=== PATIENT | male | born 1975 | race Caucasian/White ===

== ENCOUNTER 2021-08-09 14:34 | Emergency (ER) | payer OTHER ==
[~2021-08-09] VITALS: Ht 182.9 cm; Wt 109.1 kg
[2021-08-09 15:33] VITALS: TEMP 97.9
[2021-08-09] MEDS ORDERED: MEDROL 4MG DOSPA4 MG PO (15:57)
[2021-08-09 16:10] VITALS: BP 125/90; PULSE 80
[2021-08-09] MEDS ORDERED: FLEXERIL 1010 MG/TAB PO ×2 (16:20)
== END 2021-08-09 16:26 | disposition home or self-care (01) ==
LOC: COL.ER 14:34
DX: M54.16 Radiculopathy, lumbar region (principal); I10 Essential (primary) hypertension
CPT/HCPCS: J1100; J1885

== ENCOUNTER → 2021-12-14 | Outpatient (CLI) | payer OTHER ==
[~2021-12-14] MED LIST: FLEXERIL 1010 MG/TAB PO; MEDROL 4MG DOSPA4 MG PO
== END ==
LOC: MHCPAIN 15:29
DX: M47.896 Other spondylosis, lumbar region (principal); M54.16 Radiculopathy, lumbar region; M53.3 Sacrococcygeal disorders, not elsewhere classified
CPT/HCPCS: G0463

== ENCOUNTER 2022-04-11 19:17 | Emergency (ER) | payer OTHER ==
[~2022-04-11] VITALS: Ht 182.9 cm; Wt 113.6 kg
[2022-04-11 19:24] VITALS: BP 138/78; PULSE 84; TEMP 98.3
== END 2022-04-11 19:55 | disposition home or self-care (01) ==
LOC: COL.ER 19:17
DX: U07.1 COVID-19 (principal); H92.01 Otalgia, right ear

== ENCOUNTER 2022-09-08 17:30 | Observation (INO) | payer OTHER ==
[~2022-09-08] VITALS: Ht 182.9 cm; Wt 114.5 kg
[~2022-09-08 17:30] MED LIST changes: +CLARITIN 1010 MG/TAB PO; +INDERAL LA 60MG60 MG PO; +LEXAPRO20 MG PO; +SINGULAIR 110 MG/TAB PO; +STRATTERA 25MG25 MG PO
[2022-09-08 18:17] LABS: BASO % 0.3 % (0.0-2.0); EOS % 0.2 % (0.0-4.0); GRAN # 9.7 K/mm3 (1.4-6.5); GRAN % 82.4 % (42.2-75.2); HEMATOCRIT 47.6 % (42.0-52.0); HEMOGLOBIN 16.4 g/dl (13.5-18.0); LYMPH # 1.6 K/mm3 (1.2-3.4); LYMPH % 13.5 % (20.0-51.0); MEAN CELL VOLUME 85 fl (80.0-100.0); MEAN CORPUSCULAR HEMOGLOBIN 29 pg (27-31); MEAN CORPUSCULAR HGB CONC 35 g/dl (33.0-37.0); MONO # 0.4 K/mm3 (0.1-0.6); MONO % 3.3 % (1.7-9.3); PLATELET COUNT 275 K/mm3 (130-400); REDCELL DISTRIBUTION WIDTH-CV 12.5 % (11.5-14.5)
[2022-09-08 18:21] LABS: PROTHROMBIN TIME 11.6 SECONDS (9.7-12.8)
[2022-09-08 18:29] LABS: ALANINE AMINOTRANSFERASE 45 U/L (0-55); ALBUMIN 4.4 gm/dL (3.5-5.0); ALKALINE PHOSPHATASE 62 U/L (40-150); ANION GAP 12 mmol/L (7-16); AST,SGOT 30 U/L (5-34); BILIRUBIN,TOTAL 0.6 mg/dL (0.2-1.2); BLOOD UREA NITROGEN 15 mg/dL (9-21); CALCIUM 9.8 mg/dL (8.4-10.2); CARBON DIOXIDE 22 mmol/L (22-29); CHLORIDE 104 mmol/L (98-107); GLUCOSE 136 mg/dL (70-99); SODIUM 138 mmol/L (136-145); TOTAL PROTEIN 8.1 gm/dL (6.2-8.1)
[2022-09-08 18:48] LABS: TROPONIN-I < 0.010 ng/mL (0.00-0.033)
[2022-09-08] MEDS ORDERED: ZOFRAN ODT4 MG PO (20:44)
[2022-09-08] MEDS ORDERED: PATANOL OPHTHALM5 ML OU (22:54)
--- NOTE | 2022-09-09 | NUR ---
PT ADMITTED TO [facility] PER BED. A&OX4. ONLY DIZZY WHEN TURNS HEAD. REVIEWED PLAN OF CARE. SEE NEUROCHECKS Q2HR ORDERED. CALL LIGHT INREACH. BED ALRM SET.
[2022-09-09 00:24] VITALS: BP 128/72; PULSE 73; TEMP 97.6
--- NOTE | 2022-09-09 01:05 | NUR ---
STARTED O2 AT 2L NC FOR SHRUTI. NS AT 150CC/HR TO RFA. SEE MAR FOR VALIUM 5MG IV GIVEN ORDERED. PT DENIES DIZIINESS OR NAUSEA AT THIS TIME. CALL LIGHT IN REACH. BED ALARM SET.
--- NOTE | 2022-09-09 02:30 | NUR ---
PT DENIES DIZZINESS OR NAUSEA AT THIS TIME.
[2022-09-09 03:11] VITALS: BP 108/70; PULSE 70; TEMP 97.8
--- NOTE | 2022-09-09 06:17 | NUR ---
PT REPORTED ASSISTED TO BR BY SPACE AND STORAGE CLERK. TOLERATED WELL. VOIDED. BACK TO BED. ALL NEUROCHECKS WNL. NO COMPLAINTSMTHE IS AM.
[2022-09-09 06:33] LABS: BASO % 0.1 % (0.0-2.0); EOS % 0.1 % (0.0-4.0); GRAN # 6.6 K/mm3 (1.4-6.5); GRAN % 87.9 % (42.2-75.2); HEMATOCRIT 46.5 % (42.0-52.0); HEMOGLOBIN 15.4 g/dl (13.5-18.0); LYMPH # 0.8 K/mm3 (1.2-3.4); LYMPH % 11.1 % (20.0-51.0); MEAN CELL VOLUME 88 fl (80.0-100.0); MEAN CORPUSCULAR HEMOGLOBIN 29 pg (27-31); MEAN CORPUSCULAR HGB CONC 33 g/dl (33.0-37.0); MEAN PLATELET VOLUME 9.8 fl (7.4-10.4); MONO % 0.5 % (1.7-9.3); PLATELET COUNT 243 K/mm3 (130-400); RED BLOOD COUNT 5.27 M/mm3 (4.20-5.60); REDCELL DISTRIBUTION WIDTH-CV 12.8 % (11.5-14.5)
[2022-09-09 06:52] LABS: CALCIUM 9.3 mg/dL (8.4-10.2); CHOLESTEROL RISK RATIO 5.5; CREATININE, serum 0.87 mg/dL (0.72-1.25)
--- NOTE | 2022-09-09 07:00 | NUR ---
Upon entering room pt is awake lying in bed A&O x4. IV in right forearm @ 150ml/hr and O2 on @ 2L. No c/o of pain. States he only feels nauseous when turning head to the left or right. Pt in lowered bed with call light in reach.
[2022-09-09 07:12] VITALS: BP 110/65; PULSE 86; TEMP 98
--- NOTE | 2022-09-09 08:00 | NUR ---
Patient is resting in bed, alert and oriented x 4, VSS, states some dizziness but not as before. Assessment completed, Telemetry in palce, sinus tachy, Getting NS per orders. Awaiting for test. No other need at this time. Call light within reach.
--- NOTE | 2022-09-09 09:45 | NUR ---
Pt up and amublated to bathroom with supervision only. No c/o weakeness or n/v when ambulating.
[2022-09-09 11:02] VITALS: BP 120/75; PULSE 91; TEMP 97.7
--- NOTE | 2022-09-09 11:31 | NUR ---
Initial visit: Pt was resting and content. Pt joked around and seems in good spirits. Pt has no needs right now. Circulation Clerk will follow up as needed.
--- NOTE | 2022-09-09 11:46 | NUR ---
SW met with the patient to discuss discharge plan. The patient lives alone in [place]. He reports independence with ADLs and does not have any DME. He provides that he works at [employer]. The patient's PCP is Dr. Sutton and he receives his medications from the [facility]. The patient does not have a DPOA-HC and he was not interested in completing one at this time. He states that he is not and does not have any children. He states that his mother is still alive, but he wants his sister, Gill Salinas (ph#[phone]), as his person to notify. The patient plans to return home upon discharge. No additional needs at this time. *Discharge plan: home*
[2022-09-09] MEDS ORDERED: ANTIVERT 25MG25 MG PO (15:16)
[2022-09-09 16:00] VITALS: BP 114/72; PULSE 82; TEMP 97.9
--- NOTE | 2022-09-09 17:51 | NUR ---
Patient was provided with discharge information, all questions answered. IV and telemetry discontinued. Patient will be crab picker by a friend.
== END 2022-09-09 17:53 | disposition home or self-care (01) ==
LOC: COL.ER 17:30 → MEDICAL 23:18
PROVIDERS: Emergency Medicine; Nurse Practitioner Family; ADMIT Internal Medicine
DX: R42 Dizziness and giddiness (principal); R11.2 Nausea with vomiting, unspecified; Q28.1 Other malformations of precerebral vessels; R00.0 Tachycardia, unspecified; F43.10 Post-traumatic stress disorder, unspecified; Z79.899 Other long term (current) drug therapy
CPT/HCPCS: G0378; J1100; J2405; J3360; J7030

== ENCOUNTER 2024-02-12 14:16 | Emergency (ER) | payer OTHER ==
[~2024-02-12] VITALS: Ht 182.9 cm; Wt 114.5 kg
[~2024-02-12 14:16] MED LIST changes: +ANTIVERT 25MG25 MG PO; +PATANOL OPHTHALM5 ML OU; +ZOFRAN ODT4 MG PO
[2024-02-12 14:24] VITALS: TEMP 98
[2024-02-12 14:51] LABS: BASO % 0.7 % (0.0-2.0); EOS # 0.1 K/mm3 (0.0-0.7); EOS % 1.4 % (0.0-4.0); GRAN # 3.6 K/mm3 (1.4-6.5); GRAN % 62.2 % (42.2-75.2); HEMATOCRIT 48.3 % (42.0-52.0); HEMOGLOBIN 16.3 g/dl (13.5-18.0); LYMPH # 1.7 K/mm3 (1.2-3.4); LYMPH % 29.3 % (20.0-51.0); MEAN CELL VOLUME 86 fl (80.0-100.0); MEAN CORPUSCULAR HEMOGLOBIN 29 pg (27-31); MEAN CORPUSCULAR HGB CONC 34 g/dl (33.0-37.0); MEAN PLATELET VOLUME 9.8 fl (7.4-10.4); MONO # 0.4 K/mm3 (0.1-0.6); MONO % 6.2 % (1.7-9.3); PLATELET COUNT 256 K/mm3 (130-400); RED BLOOD COUNT 5.61 M/mm3 (4.20-5.60); REDCELL DISTRIBUTION WIDTH-CV 12.7 % (11.5-14.5)
[2024-02-12] MEDS ORDERED: NS 1,000 ML IV ONE (15:00)
[2024-02-12] MEDS ORDERED: HYDROmorphone 0.5 MG/0.5 ML SYRINGE IV ONE (15:00)
[2024-02-12 15:16] LABS: ALANINE AMINOTRANSFERASE 42 U/L (0-55); ALBUMIN 4.3 g/dL (3.5-5.0); ALKALINE PHOSPHATASE 57 U/L (40-150); ANION GAP 11 mmol/L (7-16); AST,SGOT 27 U/L (5-34); BILIRUBIN,TOTAL 0.5 mg/dL (0.2-1.2); BLOOD UREA NITROGEN 16 mg/dL (9-21); CALCIUM 9.9 mg/dL (8.4-10.2); CHLORIDE 104 mEq/L (98-107); CREATININE, serum 1.31 mg/dL (0.72-1.25); GLUCOSE 115 mg/dL (70-99); LIPASE 30 U/L (8-78); POTASSIUM 4.3 mEq/L (3.5-4.5); SODIUM 136 mEq/L (136-145); TOTAL PROTEIN 7.6 g/dl (6.2-8.1)
[2024-02-12 15:22] LABS: TROPONIN-I < 0.010 ng/mL (0.00-0.033)
[2024-02-12 15:55] LABS: COLLECTION METHOD CLEAN CATCH
[2024-02-12] MEDS ORDERED: Ketorolac 30 MG/ML VIAL IV ONE (16:15)
[2024-02-12 16:42] LABS: PH 5.5 (5.0-8.5); URINE APPEARANCE CLEAR (CLEAR/HAZY); URINE BLOOD NEGATIVE (NEGATIVE); URINE COLOR YELLOW (YELLOW); URINE GLUCOSE NEGATIVE (NEGATIVE); URINE KETONE NEGATIVE (NEGATIVE); URINE NITRATE NEGATIVE (NEGATIVE); URINE PROTEIN(semi-quant) NEGATIVE (NEGATIVE); URINE UROBILINOGEN 0.2 E.U/dL (0.2-1.0)
[2024-02-12] MEDS ORDERED: methylPREDNISolone Sod Succ 125 MG/2 ML VIAL IV ONE (17:00)
[2024-02-12] MEDS ORDERED: diphenhydrAMINE 50 MG/ML 1 ML VIAL IV ONE (17:00)
[2024-02-12] MEDS ORDERED: Iohexol 300 - 100 ML VIAL IV ONE (17:34)
[2024-02-12] MEDS ORDERED: NS 100 ML IV SCH (17:35)
[2024-02-12] MEDS ORDERED: Home Cyclobenzaprine 10 MG #2 TABS/PACK PO ONE (18:30)
[2024-02-12] MEDS ORDERED: FLEXERIL 1010 MG/TAB PO (18:45)
[2024-02-12 18:51] VITALS: BP 118/83; PULSE 68
== END 2024-02-12 18:57 | disposition home or self-care (01) ==
LOC: COL.ER 14:16
PROVIDERS: Nurse Practitioner
DX: M54.6 Pain in thoracic spine (principal); R10.12 Left upper quadrant pain; Z90.49 Acquired absence of other specified parts of digestive tract
CPT/HCPCS: J1170; J1200; J1885; J2919; J7030; Q9967